=== PATIENT | female | born 1970 | race Two or more races ===

== ENCOUNTER 2019-09-29 06:35 | Day surgery (SDC) | payer OTHER ==
[~2019-09-29] VITALS: Ht 157.5 cm; Wt 72.6 kg
[~2019-09-29 06:35] MED LIST: CARAFATE1 GM PO; ESOMEPRAZOLE MA40 MG PO; ZOCOR20 MG PO
[2019-09-29] MEDS ORDERED: ESOMEPRAZOLE MA40 MG PO (08:50)
[2019-09-29] MEDS ORDERED: PERCOCET 5-3251 EACH PO (08:51)
[2019-09-29] MEDS ORDERED: ZOFRAN4 MG PO (08:51)
[2019-09-29] MEDS ORDERED: KETO10TA2 PO (08:52)
== END 2019-09-29 12:45 | disposition home or self-care (01) ==
LOC: CIR.AMB 06:35 → SURH 09:30 → CIR.AMB 09:30 → EDSTATUS 09:30 → CIR.AMB 12:45
PROVIDERS: ATTEND Surgery
DX: K80.10 Calculus of gallbladder with chronic cholecystitis without obstruction (principal); Z20.828 Contact with and (suspected) exposure to other viral communicable diseases